=== PATIENT | female | born 1975 | race Caucasian/White ===

== ENCOUNTER 2017-07-22 04:41 | Emergency (ER) | payer OTHER ==
[2017-07-22 04:58] VITALS: BP 123/73; PULSE 88; TEMP 98.1; BMI 25.7
[2017-07-22] MEDS ORDERED: METHOCARBAMOL 500 MG TABLET PO ONE (05:05)
[2017-07-22] MEDS ORDERED: ACETAMINOPHEN 325 MG TABLET (FP) PO ONE (05:05)
--- NOTE | 2017-07-22 05:10 | PDOC ---
History of Present Illness - General Chief Complaint: Pain, Acute Stated Complaint: LEFT SHOULDER PAIN Time Seen by Provider: 07/22/17 04:56 History Source: Patient Exam Limitations: No Limitations - History of Present Illness Initial Comments: 07/22/17 05:04 Patient is a 42F with history of RA here today complaining of left shoulder pain. She states that Wednesday night she hurt her shoulder trying to move her bed. She was able to sleep and go to work that night and next day, but states that her pain gradually worsened since. She states that she presented to the ED this morning because she was not able to sleep. She states that her left shoulder has been above the right since . She denies parathesias. She describes the pain located along her lateral deltoid and trapezius. She denies chest pain, shortness of breath, headache, neck pain, vertigo, and vision changes. Patient states that she's taken multiple nsaids tonight. Past History - Past Medical History Allergies/Adverse Reactions: Allergies Allergy/AdvReac Type Severity Reaction Status Date / Time oxycodone [From Percocet] Allergy Verified 07/22/17 04:54 Home Medications: Ambulatory Orders Ibuprofen [Advil -] mg PO TID 07/22/17 Naproxen Sodium [Aleve] 220 mg PO BID 07/22/17 COPD: No Thyroid Disease: Yes - Surgical History Appendectomy: Yes (when preg) - Suicide/Smoking/Psychosocial Hx Smoking History: Never smoked Review of Systems - Review of Systems Comments:: 07/22/17 05:08 GENERAL/CONSTITUTIONAL: No fever or chills. No weakness. HEAD, EYES, EARS, NOSE AND THROAT: No change in vision. No ear pain or discharge. No sore throat. CARDIOVASCULAR: No chest pain or shortness of breath RESPIRATORY: No cough, wheezing, or hemoptysis. GASTROINTESTINAL: No nausea, vomiting, diarrhea or constipation. GENITOURINARY: No dysuria, frequency, or change in urination. MUSCULOSKELETAL: Positive for left shoulder pain. Negative for back and neck pain. SKIN: No rash NEUROLOGIC: No headache, vertigo, loss of consciousness, or change in strength/ sensation. ENDOCRINE: No increased thirst. No abnormal weight change ALLERGIC/IMMUNOLOGIC: No hives or skin allergy. *Physical Exam - Vital Signs Last Vital Signs Temp Pulse Resp BP Pulse Ox 98.1 F 88 18 123/73 100 07/22/17 04:55 07/22/17 04:55 07/22/17 04:55 07/22/17 04:55 07/22/17 04:55 - Physical Exam Comments: 07/22/17 05:09 GENERAL: Awake, alert, and fully oriented, in no acute distress L SHOULDER: Left clavicle above left, tender along trapezius and deltoid. Neurovascularly intact. Internally and externally rotates without pain. Abducts , but with pain. No obvious deformity. Nontender along bony surfaces. HEAD: No signs of trauma, normocephalic, atraumatic EYES: PERRLA, EOMI, sclera anicteric, conjunctiva clear ENT: Auricles normal inspection, hearing grossly normal, nares patent, oropharynx clear without exudates. Moist mucosa NECK: Normal ROM, supple, no lymphadenopathy, JVD, or masses LUNGS: No distress, speaks full sentences, clear to auscultation bilaterally HEART: Regular rate and rhythm, normal S1 and S2, no murmurs, rubs or gallops, peripheral pulses normal and equal bilaterally. NEUROLOGICAL: Cranial nerves II through XII grossly intact. Normal speech, normal gait, no focal sensorimotor deficits SKIN: Warm, Dry, normal turgor, no rashes or lesions noted. ED Treatment Course - RADIOLOGY Radiology Studies Ordered: Category Date Time Status SHOULDER-W/TRANS-LEFT [RAD] Stat Radiology 07/22/17 05:04 Ordered Medical Decision Making - Medical Decision Making 07/22/17 05:11 Patient is 42F with history of RA here today complaining of shoulder pain. Vital signs stable and normal. PE shows no obvious dislocation or fracture. Given robaxin and tylenol for pain. Will evaluate for dislocation further with x -ray. Believe patient most likely has muscle strain. 07/22/17 06:10 X-rays negative for fracture and dislocation. *DC/Admit/Observation/Transfer Diagnosis at time of Disposition: Shoulder pain, acute - Discharge Dispostion Disposition: HOME Condition at time of disposition: Good Decision to Admit order: No - Referrals - Patient Instructions Printed Discharge Instructions: DI for Shoulder Sprain Additional Instructions: You were seen today in the ED for shoulder pain. X-rays did not show a fracture or dislocation of your joint. You have injured the shoulder, please rest, use ice, and use limited amount of ibuprofen for pain. Please return if you have any new, worsening or concerning symptoms. - Post Discharge Activity
[2017-07-22] MEDS ORDERED: ACETAMINOPHEN 325 MG TABLET (FP) ONE (05:33)
[2017-07-22] MEDS ORDERED: METHOCARBAMOL 500 MG TABLET ONE (05:34)
--- NOTE | 2017-07-22 06:14 | PDOC ---
Attending Attestation - Resident Resident Name: Carlos Magana - ED Attending Attestation I have performed the following: I have examined & evaluated the patient, The case was reviewed & discussed with the resident, I agree w/resident's findings & plan, Exceptions are as noted - HPI HPI: 07/22/17 19:53 Left shoulder for one day after heavy lifting at home. Denies fall. Pt is right hand dominant - Physicial Exam PE: 07/22/17 19:53 *Physical Exam General Appearance: Yes: Appropriately Dressed. No: Apparent Distress, Intoxicated HEENT: positive: EOMI, ALEXANDRE, Normal ENT Inspection, Normal Voice, TMs Normal, Pharynx Normal. negative: Pale Conjunctivae, Photophobia, Scleral Icterus (R), Scleral Icterus (L) Neck: positive: Trachea midline, Normal Thyroid, Supple. negative: Tender, Rigid, Carotid bruit, Stridor, Lymphadenopathy (R), Lymphadenopathy (L), Thyromegaly Respiratory/Chest: positive: Lungs Clear, Normal Breath Sounds. negative: Chest Tender, Respiratory Distress, Accessory Muscle Use, Labored Respiration, RES, Crackles, Rales, Rhonchi, Stridor, Wheezing, Dullness Cardiovascular: positive: Regular Rhythm, Regular Rate, S1, S2. negative: Edema , JVD, Murmur, Bradycardia, Tachycardia Vascular Pulses: Dorsalis-Pedis (R): 2+, Doralis-Pedis (L): 2+ Gastrointestinal/Abdominal: positive: Normal Bowel Sounds, Flat, Soft. negative : Tender, Organomegaly, Pulsatile Mass, Increased Bowel Sounds, Decreased BS, Distended, Guarding, Rebound, Hernia, Hepatomegaly, Spleenomegaly Lymphatic: negative: Adenopathy, Tenderness Musculoskeletal: positive: left anterior shoulder tenderness, decrease ROM of left shoulder secondary to painnegative: CVA Tenderness, Extremity: positive: Normal Capillary Refill, Normal Inspection, Normal Range of Motion, Pelvis Stable. negative: Tender, Pedal Edema, Swelling, Erythema Integumentary: positive: Normal Color, Dry, Warm. negative: Cyanotic, Erythema , Jaundice, Rash Neurologic: positive: press washer II-XII NML intact, Fully Oriented, Alert, Normal Mood/ Affect, Motor Strength 5/5. negative: EOM Palsy, Facial Droop, Sensory Deficit 07/22/17 19:54 - Medical Decision Making 07/22/17 19:52 Pt treated and released*Physical Exam General Appearance: Yes: Appropriately Dressed. No: Apparent Distress, Intoxicated HEENT: positive: EOMI, ALEXANDRE, Normal ENT Inspection, Normal Voice, TMs Normal, Pharynx Normal. negative: Pale Conjunctivae, Photophobia, Scleral Icterus (R), Scleral Icterus (L) Neck: positive: Trachea midline, Normal Thyroid, Supple. negative: Tender, Rigid, Carotid bruit, Stridor, Lymphadenopathy (R), Lymphadenopathy (L), Thyromegaly Respiratory/Chest: positive: Lungs Clear, Normal Breath Sounds. negative: Chest Tender, Respiratory Distress, Accessory Muscle Use, Labored Respiration, RES, Crackles, Rales, Rhonchi, Stridor, Wheezing, Dullness Cardiovascular: positive: Regular Rhythm, Regular Rate, S1, S2. negative: Edema , JVD, Murmur, Bradycardia, Tachycardia Vascular Pulses: Dorsalis-Pedis (R): 2+, Doralis-Pedis (L): 2+ Gastrointestinal/Abdominal: positive: Normal Bowel Sounds, Flat, Soft. negative : Tender, Organomegaly, Pulsatile Mass, Increased Bowel Sounds, Decreased BS, Distended, Guarding, Rebound, Hernia, Hepatomegaly, Spleenomegaly Lymphatic: negative: Adenopathy, Tenderness Musculoskeletal: positive: Normal Inspection. negative: CVA Tenderness, Decreased Range of Motion Extremity: positive: Normal Capillary Refill, Normal Inspection, Normal Range of Motion, Pelvis Stable. negative: Tender, Pedal Edema, Swelling, Erythema Integumentary: positive: Normal Color, Dry, Warm. negative: Cyanotic, Erythema , Jaundice, Rash Neurologic: positive: press washer II-XII NML intact, Fully Oriented, Alert, Normal Mood/ Affect, Motor Strength 5/5. negative: EOM Palsy, Facial Droop, Sensory Deficit
== END 2017-07-22 06:33 | disposition home or self-care (01) ==
LOC: JER 04:41
DX: S49.82XA Other specified injuries of left shoulder and upper arm, initial encounter (principal); X50.0XXA Overexertion from strenuous movement or load, initial encounter; Y93.E9 Activity, other interior property and clothing maintenance; Y92.013 Bedroom of single-family (private) house as the place of occurrence of the external cause; Y99.8 Other external cause status; M06.9 Rheumatoid arthritis, unspecified
CPT/HCPCS: 73030-TC-LT-FY; 84703; 99282-25

== ENCOUNTER 2023-09-29 19:26 | Emergency (ER) | payer OTHER ==
[2023-09-29 19:32] VITALS: BP 126/77; PULSE 67; RESP 18; TEMP 97.5; BMI 27.4
== END 2023-09-29 23:02 | disposition home or self-care (01) ==
LOC: JER 19:26
DX: M79.651 Pain in right thigh (principal); M79.89 Other specified soft tissue disorders
CPT/HCPCS: 93971-TC; 99284-25